=== PATIENT | male | born 1930 | race Caucasian/White ===

== ENCOUNTER 2017-12-14 09:06 | Emergency (ER) | payer OTHER ==
[~2017-12-14] VITALS: Ht 180.3 cm; Wt 83.0 kg
[2017-12-14 09:10] VITALS: BP 156/87
[2017-12-14] MEDS ORDERED: LIPITOR40 MG PO (09:15)
[2017-12-14] MEDS ORDERED: ALENDRONATE SOD70 MG PO (09:15)
[2017-12-14] MEDS ORDERED: GLUCOSAMINE HC500 MG PO (09:15)
[2017-12-14] MEDS ORDERED: SINGULAIR 10 MG10 M1 PO (09:16)
[2017-12-14] MEDS ORDERED: OMEPRAZOLE40 MG PO (09:16)
[2017-12-14] MEDS ORDERED: COZAAR 25 MG TA25 M1 PO (09:16)
[2017-12-14] MEDS ORDERED: TOPROL XL25 MG PO (09:16)
[2017-12-14] MEDS ORDERED: KLOR-CON 1010 MEQ PO (09:17)
[2017-12-14] MEDS ORDERED: UNICOMPLEX M TA1 TA1 PO (09:17)
[2017-12-14] MEDS ORDERED: FLOMAX0.4 MG PO (09:17)
[2017-12-14] MEDS ORDERED: XARELTO20 MG PO (09:17)
[2017-12-14] MEDS ORDERED: VITAMIN D1000 UNI1 PO (09:18)
[2017-12-14] MEDS ORDERED: KEFLEX500 M1 PO (09:25)
== END 2017-12-14 09:52 | disposition home or self-care (01) ==
LOC: M.ERS 09:06
DX: H00.015 Hordeolum externum left lower eyelid (principal); I48.91 Unspecified atrial fibrillation